=== PATIENT | female | born 1940 | race Caucasian/White ===

== ENCOUNTER 2019-01-01 09:53 | Outpatient (CLI) | payer MEDICARE ==
[~2019-01-01] VITALS: Ht 162.6 cm; Wt 70.8 kg
[~2019-01-01 09:53] MED LIST: METO-370 PO; TYLENOL # 3 PO
[2019-01-01 10:04] VITALS: BP 155/82
[2019-01-01] MEDS ORDERED: ASPI-586 PO (10:10)
== END 2019-01-01 10:25 | disposition home or self-care (01) ==
LOC: PREOP 09:53
PROVIDERS: ATTEND Podiatrist Foot & Ankle Surgery
DX: Z01.818 Encounter for other preprocedural examination (principal)
CPT/HCPCS: 87081

== ENCOUNTER 2019-01-12 06:04 | Day surgery (SDC) | payer MEDICARE ==
[~2019-01-12] VITALS: Ht 162.6 cm; Wt 70.8 kg
[~2019-01-12 06:04] MED LIST changes: +ASPI-586 PO
--- OUTSIDE RECORDS SUMMARY | 2019-01-12 06:08 | XMS REPORT | Continuity of Care Document ---
Author Organization Unknown Address Unknown Allergies Active Description Code Type Severity Reaction Onset Reported/Identified Relationship to Patient Clinical Status Yes No Known Allergies [id number] Drug Allergy Unknown N/A 11/09/2015 Medications There is no data. Problems Date Dx Coded Attending Type Code Diagnosis Diagnosed By 05/03/2012 Ot 272.4 05/03/2012 Ot 276.1 05/03/2012 Ot 276.8 05/03/2012 Ot 285.1 05/03/2012 Ot 427.89 05/03/2012 Ot 715.36 06/17/2012 Ot V43.65 06/17/2012 Ot V54.81 06/17/2012 Ot V57.1 07/19/2015 Ot 353.9 07/19/2015 Ot 473.8 07/19/2015 Ot 722.4 07/19/2015 Ot 723.4 07/19/2015 Ot 715.36 07/19/2015 Ot 791.9 07/19/2015 Ot V57.1 07/19/2015 Ot V57.21 07/19/2015 Ot V72.63 07/19/2015 Ot V74.8 07/19/2015 Ot V76.12 07/19/2015 Ot V76.12 07/19/2015 Ot 353.9 07/19/2015 Ot 473.8 07/19/2015 Ot 722.4 07/19/2015 Ot 723.4 07/19/2015 Ot 715.36 07/19/2015 Ot 791.9 07/19/2015 Ot V57.1 07/19/2015 Ot V57.21 07/19/2015 Ot V72.63 07/19/2015 Ot V74.8 07/19/2015 Ot V76.12 08/09/2015 MADDI SOTO, CRISS Duron Ot Z12.31 10/14/2015 KRUPA GERONIMO APRN Ot R07.9 10/14/2015 KRUPA GERONIMO APRN Ot R07.9 10/28/2015 Ot 353.9 10/28/2015 Ot 473.8 10/28/2015 Ot 722.4 10/28/2015 Ot 723.4 10/28/2015 Ot 715.36 10/28/2015 Ot 791.9 10/28/2015 Ot V57.1 10/28/2015 Ot V57.21 10/28/2015 Ot V72.63 10/28/2015 Ot V74.8 10/28/2015 Ot V76.12 10/28/2015 MADDI SOTO, CRISS Duron Ot Z12.31 10/28/2015 KRUPA GERONIMO APRN Ot R07.9 10/28/2015 ASHWINI SOTO FACC, ALI FACP CCDS Ot I10 10/28/2015 ASHWINI SOTO FACC, ALI FACP CCDS Ot R07.89 10/28/2015 ASHWINI SOTO FACC, ALI FACP CCDS Ot I10 10/28/2015 ASHWINI SOTO FACC, ALI FACP CCDS Ot R07.89 10/28/2015 MICHAEL SOTO, HEATHER Dash Ot N39.0 URINARY TRACT INFECTION, SITE NOT SPECIF 11/22/2015 ASHWINI SOTO FACC, ALI FACP CCDS Ot I10 11/22/2015 ASHWINI SOTO FACC, ALI FACP CCDS Ot R07.89 11/22/2015 ASHWINI SOTO FACC, ALI FACP CCDS Ot I10 11/22/2015 ASHWINI SOTO FACC, ALI FACP CCDS Ot R07.89 11/24/2015 ASHIWNI SOTO FACC, ALI FACP CCDS Ot I10 11/24/2015 ASHWINI SOTO FACC, ALI FACP CCDS Ot R07.89 11/24/2015 ASHWINI SOTO FACC, ALI FACP CCDS Ot I10 11/24/2015 ASHWINI SOTO FACC, ALI FACP CCDS Ot R07.89 12/02/2015 MOODY ROSS L GUIDE DOG TRAINER Ot I10 12/02/2015 CODY MOODY L GUIDE DOG TRAINER Ot R07.89 12/02/2015 BAIMA MOODY L GUIDE DOG TRAINER Ot R91.8 2015 BAIMA MOODY L GUIDE DOG TRAINER Ot I10 2015 CODY MOODY L GUIDE DOG TRAINER Ot R07.89 2015 CODY MOODY L GUIDE DOG TRAINER Ot R91.8 12/22/2015 MADDI SOTO, CRISS Duron Ot R07.81 12/22/2015 MADDI SOTO, CRISS Duron Ot R07.9 01/10/2016 CRISS LINDA MD Ot R07.81 01/10/2016 MADDI SOTO, CRISS Duron Ot R07.9 01/18/2016 CRISS LINDA MD Ot R07.81 01/18/2016 MADDI SOTO, CRISS Duron Ot R07.9 01/01/2019 MADDI SOTO, CRISS Druon Ot Z12.31 ENCNTR SCREEN MAMMOGRAM FOR MALIGNANT NE 01/01/2019 KRUPA GERONIMO APRN Ot R07.9 CHEST PAIN, UNSPECIFIED 01/01/2019 ASHWINI SOTO FACC, ALI FACP CCDS Ot I10 ESSENTIAL (PRIMARY) HYPERTENSION 01/01/2019 ASHWINI SOTO FACC, ALI FACP CCDS Ot R07.89 OTHER CHEST PAIN 01/01/2019 ASHWINI SOTO FACC, ALI FACP CCDS Ot I10 ESSENTIAL (PRIMARY) HYPERTENSION 01/01/2019 ASHWINI SOTO FACC, ALI FACP CCDS Ot R07.89 OTHER CHEST PAIN 01/01/2019 BAIMA MOODY L GUIDE DOG TRAINER Ot I10 ESSENTIAL (PRIMARY) HYPERTENSION 01/01/2019 BAIMA, MOODY L GUIDE DOG TRAINER Ot R07.89 OTHER CHEST PAIN 01/01/2019 BAIMA MOODY L GUIDE DOG TRAINER Ot R91.8 OTHER NONSPECIFIC ABNORMAL FINDING OF OSIEL 01/01/2019 CRISS LINDA MD Ot R07.81 PLEURODYNIA 01/01/2019 CRISS LINDA MD Ot R07.9 CHEST PAIN, UNSPECIFIED 01/01/2019 RAMSEY DPM, KIAN Q Ot Z01.818 ENCOUNTER FOR OTHER PREPROCEDURAL EXAMIN 01/02/2019 RAMSEY DPM, KIAN Q Ot Z01.818 ENCOUNTER FOR OTHER PREPROCEDURAL EXAMIN 01/02/2019 RAMSEY DPM, KIAN Q Ot Z01.818 ENCOUNTER FOR OTHER PREPROCEDURAL EXAMIN 01/12/2019 LUIZAMA MOODY L GUIDE DOG TRAINER Ot I10 ESSENTIAL (PRIMARY) HYPERTENSION 01/12/2019 BAIMAMOODY L GUIDE DOG TRAINER Ot R07.89 OTHER CHEST PAIN 01/12/2019 BAIMOODY MATHEWS L GUIDE DOG TRAINER Ot R91.8 OTHER NONSPECIFIC ABNORMAL FINDING OF OSIEL 01/12/2019 CRISS LINDA MD Ot R07.81 PLEURODYNIA 01/12/2019 CRISS LINDA MD Ot R07.9 CHEST PAIN, UNSPECIFIED Procedures There is no data. Results Test Result Range Methicillin resistant Staphylococcus aureus (MRSA) screening culture - 10:15 Methicillin resistant Staphylococcus aureus (MRSA) screening culture NEG NRG Encounters ACCT No. Visit Date/Time Discharge Status Pt. Type Provider Facility Loc./Unit Complaint [id number] 01/01/2019 09:53:00 01/01/2019 10:25:00 DIS Outpatient RAMSEY DPM, KIAN Q [facility] PREOP HALLUX VALGUS RIGHT [id number] 12/21/2015 15:20:00 12/21/2015 23:59:59 CLS Outpatient CRISS LINDA MD [facility] RAD CHEST PAIN,RIB PAIN [id number] 11/09/2015 10:52:00 11/09/2015 23:59:59 CLS Outpatient MOODY ROSS [facility] RAD CHEST DISCOMFORT [id number] 10/28/2015 07:30:00 10/28/2015 09:13:00 DIS Emergency MICHAEL SOTO, HEATHER Dash [facility] ER UTI SYMPTOMS [id number] 10/25/2015 08:05:00 10/25/2015 23:59:59 CLS Outpatient ASHWINI SOTO FACC, SUSANNAH KEY CCDS [facility] CARD CHEST DISCOMFORT,HTN [id number] 10/24/2015 10:43:00 10/24/2015 23:59:59 CLS Outpatient ASHWINI SOTO FACC ALI SHAHID CCDS [facility] CARD CHEST DISCOMFORT,HTN [id number] 10/12/2015 11:33:00 10/12/2015 23:59:59 CLS Outpatient KRUPA GERONIMO APRN [facility] CARD CHEST PAIN [id number] 07/19/2015 14:39:00 07/19/2015 23:59:59 CLS Outpatient CRISS LINDA MD [facility] RAD SCREENING [id number] 01/12/2019 06:04:00 ACT Outpatient RAMSEY DPM, KIAN Q [facility] SDC HALLUX VALGUS RIGHT [id number] 07/19/2015 14:39:00 Document Registration [id number] 07/19/2015 14:39:00 Document Registration [id number] 07/19/2015 14:38:00 Document Registration [id number] 01/23/2013 10:12:00 Document Registration [id number] 04/28/2012 05:50:00 Document Registration [id number] 08/16/2010 09:37:00 Document Registration
[2019-01-12 06:10] VITALS: BP 181/75
[2019-01-12] MEDS ORDERED: ceFAZolin INJECTION 1,000 MG in WATER (STERILE) FOR INJECTION 10 ML IV ONE (06:15)
[2019-01-12] MEDS: LACTATED RINGERS 1,000 ML IV PRN ×2 (06:25→09:28)
[2019-01-12] MEDS ORDERED: proPOfol 200 MG/20 ML (DIPRIVAN) VIAL IV ONE (06:46)
[2019-01-12] MEDS ORDERED: fentaNYL INJECTION 100 MCG/2 ML AMP ONE (06:46)
[2019-01-12] MEDS ORDERED: LIDOCAINE PF 2% 5 ML (XYLOCAINE) VIAL ONE (06:46)
[2019-01-12] MEDS ORDERED: ONDANSETRON 4 MG/2 ML (SDV) Z0FRAN ONE (06:46)
[2019-01-12] MEDS ORDERED: SEVOFLURANE (ULTANE) 15 ML INHAL SOLN ONE ×3 (06:46→09:04)
[2019-01-12] MEDS ORDERED: DEXAMETHASONE 10 MG/ML (DECADRON) 1 ML VIAL ONE ×2 (06:46→07:22)
[2019-01-12] MEDS ORDERED: CATHETER FLUSH 10 ML SYR IV PRN (07:00)
[2019-01-12] MEDS ORDERED: LIDOCAINE 1% INJ 20 ML 20 ML VIAL ONE (07:22)
[2019-01-12] MEDS ORDERED: BUPIVACAINE 0.5% 30 ML (SENSORCAINE) VIAL ONE (07:22)
--- NOTE | 2019-01-12 07:25 | Progress Note-Pre Operative ---
Pre-Operative Progress Note H&P Reviewed The H&P was reviewed, patient examined and no changes noted. Date Seen by Provider: Jan 12, 2019 Time Seen by Provider: 07:24 Date H&P Reviewed: Jan 12, 2019 Time H&P Reviewed: 07:24 Pre-Operative Diagnosis: Hallux Valgus, 2nd metatarsalgia, right foot KIAN MUSTAFA DPM Jan 12, 2019 07:25
[2019-01-12] MEDS ORDERED: LACTATED RINGERS 1,000 ML IV ONE (09:21)
[2019-01-12] MEDS ORDERED: LACTATED RINGERS 1,000 ML IV SCH (09:24)
--- NOTE | 2019-01-12 09:24 | Progress Note-Post Operative ---
Post-Operative Progess Note Surgeon (s)/Systems Eng (s) Surgeon KIAN MUSTAFA DPM Systems Eng: none Pre-Operative Diagnosis Hallux Valgus, 2nd metatarsalgia, right foot Post-Operative Diagnosis Same Procedure & Operative Findings Date of Procedure 01/12/19 Procedure Performed/Findings Arturo-Zaid Bunionectomy, 2nd Metatarsal osteotomy, right Anesthesia Type General Estimated Blood Loss Estimated blood loss (mL): Minimal Specimens/Packing Specimens Removed None KIAN MUSTAFA DPM Jan 12, 2019 09:24
[2019-01-12] MEDS ORDERED: CEPH500C PO (09:28)
[2019-01-12] MEDS ORDERED: ACHD5005 PO (09:28)
[2019-01-12] MEDS ORDERED: HYDROcodone/APAP 5 MG/325 MG (LORTAB) TAB PO PRN (09:30)
[2019-01-12] MEDS ORDERED: fentaNYL INJECTION 100 MCG/2 ML AMP IVP ONE (09:30)
[2019-01-12 10:05] VITALS: BP 126/78
[2019-01-12 10:10] VITALS: BP 126/78
--- NOTE | 2019-01-12 10:18 | Diagnostic Imaging Report ---
Right foot at 9:36 Indication: Postop AP and lateral views were obtained. There are no prior studies available for comparison. There are postoperative changes involving the first ray. There has been osteotomy of the head of the first metatarsal and the base of the proximal phalanx. There is also wire securing the osteotomy site along the medial aspect of the proximal phalanx. Orthopedic fixation wire is also seen extending through the head of the first metacarpal. In addition there is an orthopedic fixation screw obliquely traversing the head of the second metatarsal. There is some gas in the soft tissues about the first ray. There is no other fracture or acute bony abnormality noted. Impression: There are postoperative changes of the first and second rays. There is no acute abnormality identified. Dictated by: Dictated on workstation # [id number]
[2019-01-12 10:35] VITALS: BP 158/71
--- NOTE | 2019-01-12 10:57 | Anesthesia-General Post-Op ---
General Patient Condition Mental Status/LOC: Same as Preop Cardiovascular: Satisfactory Nausea/Vomiting: Absent Respiratory: Satisfactory Pain: Controlled Complications: Absent Post Op Complications Complications None Follow Up Care/Instructions Patient Instructions None needed. Anesthesia/Patient Condition Patient Condition Patient is doing well, no complaints, stable vital signs, no apparent adverse anesthesia problems. No complications reported per nursing. D/C home per [facility] [place] Criteria: Yes ISA WILSON CRNA Jan 12, 2019 10:56
[2019-01-12 11:05] VITALS: BP 176/86
--- NOTE | 2019-01-12 11:08 | Physical Therapy Ortho Eval ---
PT Orthopedic Evaluation Type of Surgery hallux valgus right Prior Level of Function Current Living Status: Spouse Locomotion (Upon Admit): Independent Established Durable Medical Eq: Front Wheeled Walker Subjective Subjective Agrees to PT. Reports her will be at home to help her. Entry Into Home: Stairs With Railing (4) Motor Control Motor Control: Motor Control WNL ROM ROM: WFL Strength Strength: WFL Transfer Transfers (B, C, W/C) (FIM): 6 Gait Gait Assistive Device: FWW Right Lower Extremity: Right Weight Bearing Status RLE: Non Weight Bearing (heel touch only) Left Lower Extremity: Left Weight Bearing Status LLE: Full Weight Bearing Gait (FIM): 5 (6 at discharge) Summary/Comments Pt able to walk with heel touch WB only with FWW safely. Up/down a step x 3 with skilled cues and instruction on sequencing and safety with education on WB maintenance. Pt plans to use her handrail to go up and down sideways. Demonstrated correct and safe performance. Treatment Rendered Treatment: Gait Train, Step Train Assessment/Goals Goal Time Frame: 1 Visit Plan Treatment Plan: Discharge, Education PT/Family Agrees to Plan: Yes Time Time In: 1040 Time Out: 1100 Total Billed Treatment Time: 20 Billed Treatment Time visit EVL 20 KATHE AGUIRRE PT Jan 12, 2019 11:08
--- NOTE | 2019-01-12 15:18 | OPERATIVE REPORT ---
DATE OF SERVICE: 01/12/2019 SURGEON: Marylu Alvarez DPM. PREOPERATIVE DIAGNOSES: 1. Hallux abducto valgus metatarsal primus varus, right foot. 2. Hypertrophic second metatarsal, right foot. POSTOPERATIVE DIAGNOSES: 1. Hallux abducto valgus metatarsal primus varus, right foot. 2. Hypertrophic second metatarsal, right foot. PROCEDURE: 1. Modified Arturo-Zaid bunionectomy, right foot. 2. Second metatarsal osteotomy, right foot. WOUND CLASS: Clean. ANESTHESIA: General. HEMOSTASIS: Pneumatic thigh tourniquet 300 mmHg. INDICATION: This 78-year-old female presents complaining of a painful right foot. Conservative therapy has met with unsatisfactory results and the patient is agreeable to surgical intervention after risks and complications were discussed at length. No guarantees were extended to the patient and she is willing to proceed. DESCRIPTION OF PROCEDURE: The patient was brought back to the operating table, placed in secure supine position. Appropriate time out was performed. Pneumatic thigh tourniquet was placed on the right lower extremity over several layers of padding. General anesthetic was induced. The right foot was then prepped and draped in normal sterile manner. The right foot was then elevated and allowed to exsanguinate after which the tourniquet was inflated to 300 mmHg. Attention was then directed to the dorsal aspect of the right first metatarsophalangeal joint where a 6 cm longitudinal linear incision was created. The incision was deepened in the same plane with great care to identify and retract all vital neurovascular structures. All the necessary blood vessels were cauterized as encountered. The incision was deepened down to the capsule where a longitudinal capsulotomy was performed. The capsule tissue was reflected medially and laterally exposing the hypertrophic medial eminence of the first metatarsal head, which was resected utilizing a power sagittal saw. Blunt dissection was carried out into the first intermetatarsal space where a lateral release was performed. The conjoint tendon of the adductor hallucis was released as well as the fibular sesamoidal ligament and a lateral capsulorrhaphy was performed. The hallux was then forcibly adducted. Next, a Chevron-type osteotomy was performed to the distal right first metatarsal allowing the capital fragment to translocate laterally and fixated in its corrected position utilizing a 0.062 threaded K-wire driven from dorsal proximal to plantar distal across the osteotomy with great care to avoid penetrating the articular cartilage. The K-wire was cut flush with the dorsal aspect of the first metatarsal. The head of the first metatarsal was further contoured and smoothed with a power sagittal saw and power bur. Attention was then directed to the diaphysis of the right hallux proximal phalanx where an Zaid type osteotomy was performed. Subperiosteal dissection was carried out after which a wedge of bone was resected utilizing a power sagittal saw. The lateral cortices was held intact and the wedge of bone was removed. The gap was closed, noting a good reduction of the angulation of the right hallux. Two facilities flight check pilot holes were created after which a 28-gauge monofilm wire were passed through these facilities flight check pilot holes securing the osteotomy in a closed position after it was flushed with copious amounts of normal saline. Excellent bony apposition and fixation was appreciated at this time. Good alignment of the first ray was appreciated as well especially with plantar pressure applied simulating weightbearing. The closure was performed in layers. Deep closure was performed with 3-0 Vicryl, superficial with 4-0 Vicryl, skin closed with 4-0 Prolene in a horizontal mattress type stitch. Attention was then directed to the dorsal aspect of the right second metatarsophalangeal joint where a 3 cm longitudinal linear incision was created. The incision was deepened in the same plane with great care to identify and retract vital neurovascular structures. All the necessary blood vessels were cauterized as encountered. The incision was deepened down to the capsule and extensor tendon where a longitudinal capsulotomy was performed just medial to the extensor tendons overlying the second metatarsophalangeal joint. Next, a power sagittal saw was utilized to create an oblique second metatarsal osteotomy starting at the articular cartilage at the distal lateral aspect extending proximally. The through and through osteotomy allowing the capital fragment to translocate proximally and medially and was fixated in its corrected position utilizing a 2.0 snap-off screw of 14 mm of length. Excellent bony apposition and fixation was appreciated at this time. The wound was flushed with copious amounts of normal saline throughout the procedure. Closure was then performed in layers. Deep closure and superficial closure was performed with 4-0 Vicryl. Skin closure was performed with 4-0 Prolene in a horizontal mattress type stitch. Postoperative injection consisted of 10 mL of 0.5% Marcaine, 10 mL of 0.5% Marcaine was utilized preoperatively as well. In addition to the Marcaine, 10 mg of dexamethasone was injected in the first intermetatarsal space of the right foot. Postoperative dressing consisted of Betadine soaked Adaptic, sterile 4 x 4, sterile Kerlix, all secured with a Coban wrap. The patient tolerated the anesthesia and procedure well and was transported from the operating room to the recovery area with vital signs stable and vascular status intact to all digits of the right foot. Postoperative instructions were given to the patient and she is to be nonweightbearing on the right foot. Follow up in my office in 10 days' period of time or sooner if necessary. She was given a prescription for Keflex and Vicodin. Job ID: [id number] DocumentID: [id number] Dictated Date: 01/12/2019 09:36:04 Unemployment Insurance Hearing Officer Date: 01/12/2019 15:17:58 Dictated By: DARRYN BRIZUELA
== END 2019-01-12 11:25 | disposition home or self-care (01) ==
LOC: SDC 06:04
PROVIDERS: ATTEND Podiatrist Foot & Ankle Surgery
DX: M20.11 Hallux valgus (acquired), right foot (principal); M89.371 Hypertrophy of bone, right ankle and foot; M77.41 Metatarsalgia, right foot; E78.2 Mixed hyperlipidemia; I10 Essential (primary) hypertension; Z79.82 Long term (current) use of aspirin; Z79.899 Other long term (current) drug therapy
CPT/HCPCS: 73620

== ENCOUNTER → 2019-02-21 | Outpatient (CLI) | payer MEDICARE ==
[~2019-02-21] MED LIST changes: +ACHD5005 PO; +CEPH500C PO
== END ==
LOC: LAB 12:28
PROVIDERS: ATTEND Internal Medicine
DX: D64.9 Anemia, unspecified (principal)
CPT/HCPCS: 82274

== ENCOUNTER → 2019-05-19 | Outpatient (CLI) | payer MEDICARE ==
[~2019-05-19] MED LIST changes: +HOLD METFORMIN - RECEIVED CONTRAST 20 ML VIAL IV SCH; +IOHEXOL 350 MG/ML 100 ML (OMNIPAQUE 350) VIAL IV ONE; +NS 100 ML (IVPB) BAG IV ONE
--- NOTE | 2019-05-19 13:29 | Diagnostic Imaging Report ---
PROCEDURE: CT abdomen and pelvis with and without contrast. TECHNIQUE: Precontrast acquisitions were acquired through the abdomen and pelvis. Multiple contiguous axial images were obtained through the abdomen and pelvis after the administration of intravenous contrast. Auto Exposure Controls were utilized during the CT exam to meet ALARA standards for radiation dose reduction. (It is noted that there was inadvertent imaging through the chest). INDICATION: Diverticulitis. Abdominal pain. CORRELATION STUDY: 07/27/2009. FINDINGS: Imaging included the chest. The heart size is enlarged with trace pericardial effusion. There are no pathologically enlarged mediastinal and/or hilar lymph nodes demonstrated. Thoracic aortic contour appearing unremarkable. There is noted gas within the left innominate vein and proximal aspect of the superior vena cava. Liver, pancreas, and adrenal glands are unremarkable. Few calcified granulomas in the spleen. Gallbladder is absent. Common bile duct is dilated up to just under 1 cm maximum dimension. A few probable cortical cysts of the kidneys. No hydronephrosis or obstruction. Moderate aortoiliac wall calcification. Slight ectasia without evidence for aneurysm. Maximum dimension of the abdominal aorta at 2.3 cm. Major branches are patent proximally. Gastrointestinal tract demonstrated some mild severity of fecal retention. There is a moderate severity of colonic diverticulosis, particular descending and sigmoid colon. No definitive inflamed diverticulum. However, there is very slight haziness of the pericolonic fat in the left lower quadrant. Possibility of low-grade diverticulitis would be difficult to exclude or could be chronic changes. A few mildly prominent fluid-filled loops of small bowel in the right lower quadrant without evidence for obstruction. Urinary bladder appearing unremarkable. Uterus appearing absent. Lung vidales do demonstrate emphysematous changes. No definitive infiltrate. Mild bibasilar atelectasis and trace dependent pleural effusions. Two 4 mm nodules in the anterior right middle lobe. IMPRESSION: 1. Prominent distal colonic diverticulosis. While definitive inflamed diverticulum is not demonstrated, there are slight pericolonic inflammatory changes to the left lower quadrant of which lower-grade diverticulitis or perhaps chronic changes not excluded. No abscess formation. 2. Small amount of air noted in the left brachiocephalic trunk and superior vena cava. (A telephone call has been made to the medical technologist chief. Patient reported as asymptomatic). Dictated by: Dictated on workstation # [id number]
== END ==
LOC: RAD 05-18 15:52
PROVIDERS: ATTEND Nurse Practitioner
DX: K57.30 Diverticulosis of large intestine without perforation or abscess without bleeding (principal); K57.32 Diverticulitis of large intestine without perforation or abscess without bleeding
CPT/HCPCS: 74178

== ENCOUNTER 2022-02-18 19:19 | Emergency (ER) | payer MEDICARE ==
[~2022-02-18] VITALS: Ht 162.5 cm; Wt 65.7 kg
[~2022-02-18 19:19] MED LIST changes: -HOLD METFORMIN - RECEIVED CONTRAST 20 ML VIAL IV SCH; -IOHEXOL 350 MG/ML 100 ML (OMNIPAQUE 350) VIAL IV ONE; -METO-370 PO; +METO50TA7 PO; -NS 100 ML (IVPB) BAG IV ONE
[2022-02-18] MEDS ORDERED: LACTATED RINGERS 1,000 ML IV ONE ×2 (19:45→21:30)
[2022-02-18] MEDS ORDERED: ONDANSETRON 4 MG/2 ML (SDV) Z0FRAN IVP ONE (19:45)
[2022-02-18 19:47] LABS: BASOPHILS % (AUTO) 0 % (0-10); EOSINOPHILS # (AUTO) 0.1 10^3/uL (0.0-0.3); EOSINOPHILS % (AUTO) 1 % (0-10); HEMATOCRIT 40 % (35-52); HEMOGLOBIN 13.1 g/dL (11.5-16.0); LYMPHOCYTES # (AUTO) 0.3 10^3/uL (1.0-4.0); LYMPHOCYTES % (AUTO) 4 % (12-44); MEAN CORPUSCULAR HEMOGLOBIN 30 pg (25-34); MEAN CORPUSCULAR HGB CONC 33 g/dL (32-36); MEAN CORPUSCULAR VOLUME 90 fL (80-99); MEAN PLATELET VOLUME 11.3 fL (9.0-12.2); MONOCYTES # (AUTO) 0.4 10^3/uL (0.0-1.0); MONOCYTES % (AUTO) 4 % (0-12); NEUTROPHILS # (AUTO) 8.3 10^3/uL (1.8-7.8); NEUTROPHILS % (AUTO) 91 % (42-75); PLATELET COUNT 157 10^3/uL (130-400); WHITE BLOOD COUNT 9.2 10^3/uL (4.3-11.0)
[2022-02-18 19:53] LABS: ALBUMIN 4.1 GM/DL (3.2-4.5); CHLORIDE 107 MMOL/L (98-107); POTASSIUM 4.2 MMOL/L (3.6-5.0); SODIUM 139 MMOL/L (135-145)
[2022-02-18 19:54] LABS: AMYLASE 66 U/L (25-125); CALCIUM 9.3 MG/DL (8.5-10.1)
[2022-02-18 19:55] LABS: GLUCOSE 124 MG/DL (70-105)
[2022-02-18 19:57] LABS: CARBON DIOXIDE 19 MMOL/L (21-32)
[2022-02-18 19:59] LABS: ALKALINE PHOSPHATASE 51 U/L (40-136); CREATININE SERUM 1.04 MG/DL (0.60-1.30); GFR ESTIMATED 53
[2022-02-18 20:00] LABS: BUN/CREATININE RATIO 20
[2022-02-18] MEDS ORDERED: HYOSCYAMINE 0.125 MG (LEVSIN) TAB SL ONE (20:00)
[2022-02-18 20:02] LABS: ALANINE AMINOTRANSFERASE 13 U/L (0-55); MAGNESIUM 1.6 MG/DL (1.6-2.4)
[2022-02-18 20:03] LABS: CREATINE KINASE 50 U/L (29-168); LIPASE 12 U/L (8-78)
[2022-02-18 20:07] LABS: BILIRUBIN,URINE NEGATIVE (NEGATIVE); CLARITY,URINE CLEAR; COLOR,URINE YELLOW; GLUCOSE, URINE (UA) NEGATIVE (NEGATIVE); KETONES,URINE NEGATIVE (NEGATIVE); LEUKOCYTE ESTERASE ,URINE NEGATIVE (NEGATIVE); NITRITE,URINE NEGATIVE (NEGATIVE); PROTEIN,URINE NEGATIVE (NEGATIVE)
[2022-02-18 20:13] LABS: BAND NEUTROPHILS 3 %; LYMPHOCYTES % (MANUAL) 2 %; MONOCYTES % (MANUAL) 5 %; NEUTROPHILS % (MANUAL) 90 %; RBC MORPH NORMAL; TOXIC GRANULATION/VACUOLAZATIO 1+
[2022-02-18 20:17] LABS: BACTERIA,URINE TRACE /HPF; WBC,URINE RARE /HPF
--- NOTE | 2022-02-18 20:26 | ED GI ---
General Chief Complaint: Abdominal/GI Problems Stated Complaint: DIARRHEA Nursing Triage Note: PATIENT STATES THAT SHE BEGAN TO HAVE DIARRHEA AT 1000 TODAY AND HAS HAD APPROX. 12 EPISODES SINCE THEN. SHE HAS TAKEN IMODIUM THAT HAS NOT HELPED. SHE ALSO C/O CRAMPING BUT DENIES VOMITING. Source of Information: Patient, Spouse History of Present Illness Date Seen by Provider: February 18, 2022 Time Seen by Provider: 19:40 Initial Comments PT ARRIVES VIA POV FROM HOME WITH PT HAS HAD NAUSEA, ABDOMINAL CRAMPING AND PAIN AND DIARRHEA SINCE 10 AM TODAY HAS HAD DIARRHEA 12 TIMES TODAY, NO BLACK/BLOODY/TARRY STOOLS NO VOMITING HAS NOT EATEN TODAY, AND ONLY HAD 2 SIPS OF SODA THIS AM. NOTHING ELSE TO DRINK TODAY NO FEVER STATES SHE IS VOIDING NORMALLY TOOK A TOTAL OF 4 IMMODIUM SINCE THIS MORNING, AND HAS NOT HAD A BM FOR A COUPLE OF HOURS. NO KNOWN SICK CONTACT DID GO TO A BBQ YESTERDAY, AND AROUND 1700 YESTERDAY SHE HAD A HAMBURGER, SOME MUSHROOMS AND ONIONS THAT WERE COOKED IN ALUMINUM FOIL OVER THE GRILL. SHE ALSO HAD A PIECE OF CAKE AT THAT TIME HAD A BROWNIE AROUND 2100 LAST PM ATE SAME AND IS NOT ILL. NO HISTORY OF SIMILAR NO GI PROBLEMS , BUT HAS HAD CHOLECYSTECTOMY AND HYSTERECTOMY ONLY MEDICAL PROBLEM IS HTN PT HAS HAD COVID-19 VACCINE X 4 PCP: DR. LINDA Allergies and Home Medications Allergies Coded Allergies: No Known Allergies (Unverified Allergy, Unknown, 11/09/15) Patient Home Medication List Home Medication List Reviewed: Yes Aspirin (Aspir 81) 81 Mg Tablet., 81 MG PO MoWeFr, (Reported) Entered as Reported by: MAGDA KRUEGER on 01/01/19 1010 Cephalexin (Cephalexin) 500 Mg Capsule, 1 CAP PO TID Prescribed by: KIAN MUSTAFA on 01/12/19927 Hydrocodone Bit/Acetaminophen (Lortab 5 Mg Tablet) 1 Tab Tab, 1-2 TAB PO Q6H PRN for PAIN-MODERATE Prescribed by: KIAN MUSTAFA on 01/12/19927 Hyoscyamine Sulfate (Levsin-Sl) 0.125 Mg Tab.subl, 0.25 MG SL Q4H Prescribed by: ALEJANDRO DU on 02/18/222132 L. Acidophilus/Pectin, [place] (Acidophilus Capsule) 7.5 Mg (30 Million Cell)-100 Mg Capsule, 2 EACH PO QID Prescribed by: ALEJANDRO DU on 02/18/222132 Metoprolol Succinate (Metoprolol Succinate) 50 Mg Tab.er.24h, 50 MG PO HS, (Reported) Entered as Reported by: BRENT MICHEL on 10/28/15 0751 Ondansetron (Ondansetron Odt) 4 Mg Tab.rapdis, 4 MG PO Q4H Prescribed by: ALEJANDRO DU on 02/18/222132 Review of Systems Review of Systems Constitutional: No fever; malaise, weakness EENTM: No Symptoms Reported Respiratory: No Symptoms Reported Cardiovascular: No Symptoms Reported Gastrointestinal: See HPI, Abdominal Pain, Diarrhea, Nausea, Poor Appetite, Poor Fluid Intake; Denies Vomiting Genitourinary: No Symptoms Reported Musculoskeletal: no symptoms reported Skin: no symptoms reported Psychiatric/Neurological: Anxiety (HYPERVENTILATING ON ARRIVAL--PT CALMED SHORTLY AFTER ARRIVAL) Endocrine: No Symptoms Reported Hematologic/Lymphatic: No Symptoms Reported Past Twohptk-Ggmjtr-Xccksp Hx Patient Social History Tobacco Use?: No Smoking Status: Never a Smoker Use of E-Cig and/or Vaping Mik: Never a User Substance use?: No Alcohol Use?: No Immunizations Up To Date Tetanus Booster (TDap): Unknown PED Vaccines UTD: No Seasonal Allergies Seasonal Allergies: No Past Medical History Surgeries: Yes (R TKR;R FOOT BUNIONECTOMY;BILAT CATARACTS) Eye Surgery, Gallbladder, Hysterectomy, Orthopedic Respiratory: No Cardiac: Yes Hypertension Neurological: No Reproductive Disorders: No [employer] History: Hysterectomy, Menopausal Genitourinary: Yes Bladder Infection Gastrointestinal: Yes (S/P CHOLECYSTECTOMY) Gall Bladder Disease Musculoskeletal: Yes (RIGHT TKR, R FOOT BUNIONECOMY) Arthritis Endocrine: No HEENT: Yes (cataracts removed) Cataract Hearing Impairment: Hard of Hearing Cancer: No Psychosocial: No Integumentary: No Blood Disorders: No Adverse Reaction/Blood Tranf: No Physical Exam Vital Signs Vital Signs - First Documented 02/18/22 19:35 Temp 36.7 Pulse 96 Resp 20 B/P (MAP) 136/75 (95) Pulse Ox 96 O2 Delivery Room Air Capillary Refill : Less Than 3 Seconds Height/Weight/BMI Height: 5'4.00" Weight: 156lbs. 0.0oz. [id number]; 24.00 BMI Method: General Appearance: WD/WN, no apparent distress HEENT: PERRL/EOMI; No scleral icterus (R), No scleral icterus (L) Neck: normal inspection Respiratory: normal breath sounds, no respiratory distress, no accessory muscle use Cardiovascular: regular rate, rhythm, no murmur Gastrointestinal: soft, no organomegaly, no pulsatile mass, abnormal bowel sounds (HYPERACTIVE); No distended, No guarding, No rebound; tenderness (DIFFUSE TENDERNESS, BUT IS MOST TENDER IN LLQ AND SUPRAPUBIC AREA); No hernia, No mass Extremities: normal inspection Back: normal inspection, no CVA tenderness Neurologic/Psychiatric: manager program II-XII nml as tested, no motor/sensory deficits, alert, oriented x 3 Skin: normal color, warm/dry; No rash Progress/Results/Core Measures Results/Orders Lab Results Laboratory Tests Test 02/18/22 19:35 02/18/22 20:01 Range/Units White Blood Count 9.2 4.3-11.0 10^3/uL Red Blood Count 4.40 3.80-5.11 10^6/uL Hemoglobin 13.1 11.5-16.0 g/dL Hematocrit 40 35-52 % Mean Corpuscular Volume 90 80-99 fL Mean Corpuscular Hemoglobin 30 25-34 pg Mean Corpuscular Hemoglobin Concent 33 32-36 g/dL Red Cell Distribution Width 13.6 10.0-14.5 % Platelet Count 157 130-400 10^3/uL Mean Platelet Volume 11.3 9.0-12.2 fL Immature Granulocyte % (Auto) 0 % Neutrophils (%) (Auto) 91 H 42-75 % Lymphocytes (%) (Auto) 4 L 12-44 % Monocytes (%) (Auto) 4 0-12 % Eosinophils (%) (Auto) 1 0-10 % Basophils (%) (Auto) 0 0-10 % Neutrophils # (Auto) 8.3 H 1.8-7.8 10^3/uL Lymphocytes # (Auto) 0.3 L 1.0-4.0 10^3/uL Monocytes # (Auto) 0.4 0.0-1.0 10^3/uL Eosinophils # (Auto) 0.1 0.0-0.3 10^3/uL Basophils # (Auto) 0.0 0.0-0.1 10^3/uL Immature Granulocyte # (Auto) 0.0 0.0-0.1 10^3/uL Neutrophils % (Manual) 90 % Lymphocytes % (Manual) 2 % Monocytes % (Manual) 5 % Band Neutrophils 3 % Toxic Granulation 1+ Blood Morphology Comment NORMAL Prothrombin Time 12.4 12.2-14.7 SEC INR Comment 0.9 0.8-1.4 Activated Partial Thromboplast Time 26 24-35 SEC Sodium Level 139 135-145 MMOL/L Potassium Level 4.2 3.6-5.0 MMOL/L Chloride Level 107 98-107 MMOL/L Carbon Dioxide Level 19 L 21-32 MMOL/L Anion Gap 13 5-14 MMOL/L Blood Urea Nitrogen 21 H 7-18 MG/DL Creatinine 1.04 0.60-1.30 MG/DL Estimat Glomerular Filtration Rate 53 BUN/Creatinine Ratio 20 Glucose Level 124 H 70-105 MG/DL Calcium Level 9.3 8.5-10.1 MG/DL Corrected Calcium 9.2 8.5-10.1 MG/DL Magnesium Level 1.6 1.6-2.4 MG/DL Total Bilirubin 2.0 H 0.1-1.0 MG/DL Aspartate Amino Transf (AST/SGOT) 22 5-34 U/L Alanine Aminotransferase (ALT/SGPT) 13 0-55 U/L Alkaline Phosphatase 51 40-136 U/L Total Creatine Kinase 50 29-168 U/L Creatine Kinase MB 1.0 <6.6 NG/ML Troponin I < 0.028 <0.028 NG/ML Total Protein 7.0 6.4-8.2 GM/DL Albumin 4.1 3.2-4.5 GM/DL Amylase Level 66 25-125 U/L Lipase 12 8-78 U/L Urine Color YELLOW Urine Clarity CLEAR Urine pH 6.0 5-9 Urine Specific [place] 1.020 1.016-1.022 Urine Protein NEGATIVE NEGATIVE Urine Glucose (UA) NEGATIVE NEGATIVE Urine Ketones NEGATIVE NEGATIVE Urine Nitrite NEGATIVE NEGATIVE Urine Bilirubin NEGATIVE NEGATIVE Urine Urobilinogen 0.2 < = 1.0 MG/DL Urine Leukocyte Esterase NEGATIVE NEGATIVE Urine RBC (Auto) NEGATIVE NEGATIVE Urine RBC NONE /HPF Urine WBC RARE /HPF Urine Squamous Epithelial Cells 2-5 /HPF Urine Crystals NONE /LPF Urine Bacteria TRACE /HPF Urine Casts NONE /LPF Urine Mucus SMALL H /LPF Urine Culture Indicated NO My Orders Orders - ALEJANDRO DU DO Ed Iv/Invasive Line Start (02/18/22 19:40) Ekg Tracing (02/18/22 19:40) Monitor-Rhythm Ecg Trace Only (02/18/22 19:40) Amylase (02/18/22 19:40) Cbc With Automated Diff (02/18/22:40) Comprehensive Metabolic Panel (02/18/22 19:40) Creatine Kinase (02/18/22 19:40) Creatine Kinase Mb (02/18/22 19:40) Lipase (02/18/22:40) Magnesium (02/18/22:40) Protime With Inr (02/18/22:40) Partial Thromboplastin Time (02/18/22 19:40) Ua Culture If Indicated (02/18/22 19:40) Troponin I Maria Elena (02/18/22 19:40) Ondansetron Injection (Zofran Injectio (02/18/22 19:45) Ed Iv/Invasive Line Start (02/18/22 19:40) Lactated Ringers (Lr 1000 Ml Iv Solution (02/18/22 19:45) Covid 19 Inhouse Test (02/18/22:40) Influenza A And B By Pcr (02/18/22 19:40) Isolation Central Supply Req (02/18/22 19:40) Manual Differential (02/18/22 19:35) Straight Cath For Spec.-Adult (02/18/22 19:50) Hyoscyamine Sl Tablet (Levsin Sl Tablet) (02/18/22 20:00) Ct Abdomen/Pelvis W (02/18/22 20:18) Chest 1 View, Ap/Pa Only (02/18/22 20:20) Iohexol Injection (Omnipaque 350 Mg/Ml 1 (02/18/22 20:30) Received Contrast (Hold Metformin- Contr (02/18/22 20:30) Sodium Chloride Flush (Catheter Flush Sy (02/18/22 20:30) Ns (Ivpb) (Sodium Chloride 0.9% Ivpb Bag (02/18/22 20:30) Ed Iv/Invasive Line Start (02/18/22 21:28) Lactated Ringers (Lr 1000 Ml Iv Solution (02/18/22 21:30) Rx-Hyoscyamine Tab (Rx-Levsin Sl) (02/18/22 21:28) Rx-Ondansetron Po (Rx-Zofran Po) (02/18/22 21:28) Medications Given in ED Current Medications Medications Dose Ordered Sig/Swathi Route Start Time Stop Time Status Last Admin Dose Admin Hyoscyamine Sulfate 0.25 mg ONCE ONCE SL 02/18/22 20:00 02/18/22 20:01 DC 02/18/22 19:58 0.25 MG Iohexol 100 ml ONCE ONCE IV 02/18/22 20:30 02/18/22 21:00 DC 02/18/22 20:48 83 ML Lactated Ringer's 1,000 ml @ 0 mls/hr Q0M ONCE IV 02/18/22 19:45 02/18/22 19:46 DC 02/18/22 19:59 999 MLS/HR Lactated Ringer's 1,000 ml @ 0 mls/hr Q0M ONCE IV 02/18/22 21:30 02/18/22 21:31 DC 02/18/22 21:39 999 MLS/HR Ondansetron HCl 4 mg ONCE ONCE IVP 02/18/22 19:45 02/18/22 19:46 DC 02/18/22 19:58 4 MG Sodium Chloride 10 ml NEEDED PRN IV 02/18/22 20:30 02/18/22 22:16 DC 02/18/22 20:48 10 ML Sodium Chloride 100 ml ONCE ONCE IV 02/18/22 20:30 02/18/22 21:00 DC 02/18/22 20:48 80 ML Vital Signs/I&O 02/18/22 02/18/22 19:35 22:10 Temp 36.7 36.6 Pulse 96 93 Resp 20 14 B/P (MAP) 136/75 (95) 142/69 Pulse Ox 96 99 O2 Delivery Room Air Room Air 02/19/22 00:00 Intake Total 2000 ml Balance 2000 ml Blood Pressure Mean: 95 Progress Progress Note : Progress Note GIVEN IV FLUIDS AND LEVSIN WITH IMPROVEMENT IN SYMPTOMS CRAMPING/PAIN RESOLVED NO BM DURING ER STAY PT TOLERATING LIQUIDS Initial ECG Impression Date: February 18, 2022 Initial ECG Impression Time: 19:52 Initial ECG Rate: 83 Initial ECG Rhythm: Normal Sinus Diagnostic Imaging Comments PER RADIOLOGIST REPORTS AT 2123 CXR-- FINDINGS: The heart size, mediastinal configuration and pulmonary vascularity are within normal limits. No infiltrate. Perhaps minimal scarring or atelectasis right perihilar region and left lung base. IMPRESSION: 1. Negative for acute abnormality of the chest. CT ABDOMEN/PELVIS-- FINDINGS: LOWER THORAX: Minimal dependent atelectasis. Heart size is mildly enlarged with small pericardial effusion. Small hiatal hernia. LIVER: Unremarkable. GALLBLADDER: Gallbladder absent. There is mild prominence of the extrahepatic and central intrahepatic biliary tree likely post costectomy state. SPLEEN: Several calcified granulomas. PANCREAS: Atrophic, otherwise unremarkable. ADRENAL GLANDS: Unremarkable. KIDNEYS: Probable small cortical cyst, no obstruction. ABDOMINAL AORTA: Moderate aortoiliac wall calcification. GASTROINTESTINAL TRACT: Stomach relatively collapsed with resultant gastric wall thickening. There are a few fluid-filled loops of small bowel with some areas of small bowel wall thickening. Most pronounced in the pelvis. No transition or evidence for underlying obstruction. There is some fluid within the colon. Colonic diverticulosis without evidence for acute diverticulitis. The appendix is not localized. There is a small amount of pelvic fluid. URINARY BLADDER: Relatively decompressed. REPRODUCTIVE: Hysterectomy. OSSEOUS STRUCTURES: No acute abnormality. OTHER: None. IMPRESSION: 1. A few prominent fluid and gas-filled loops of small bowel with small bowel wall thickening. No transition or evidence for obstruction, could be reflective of nonspecific enteritis. There is presence of a small volume pelvic ascites which is considered abnormal given the patient's age. This does increase concern for potential underlying infectious or inflammatory process. Close clinical and potentially short-term follow-up imaging correlation, as clinically warranted. 2. Diverticulosis without evidence for acute diverticulitis. The appendix is not localized. 3. Cardiac enlargement. Small pericardial effusion. Reviewed: Reviewed by Me Departure Impression Primary Impression: Gastroenteritis Disposition: 01 HOME, SELF-CARE Condition: Improved Departure-Patient Inst. Decision time for Depature: 21:30 Referrals: CRISS LINDA MD (PCP/Family) Primary Care Physician Patient Instructions: [id number] Add. Discharge Instructions: CLEAR LIQUIDS--WATER, BROTH, JELLO, GATORADE BRATS DIET--BANANAS, RICE, APPLESAUCE, TOAST, SALTINES FOLLOW UP WITH DR. LINDA IN 2-3 DAYS IF NO BETTER, RETURN TO ER IF WORSE All discharge instructions reviewed with patient and/or family. Voiced understanding. Scripts L. Acidophilus/Pectin, [place] (Acidophilus Capsule) 7.5 Mg (30 Million Cell)-100 Mg Capsule 2 EACH PO QID, #40 CAP Prov: ALEJANDRO DU DO 02/18/22 Hyoscyamine Sulfate (Levsin-Sl) 0.125 Mg Tab.subl 0.25 MG SL Q4H, #15 TAB Prov: ALEJANDRO DU DO 02/18/22 Ondansetron (Ondansetron Odt) 4 Mg Tab.rapdis 4 MG PO Q4H for Nausea/Vomiting, #10 TAB Prov: ALEJANDRO DU DO 02/18/22 ALEJANDRO DU DO February 18, 2022 20:26
[2022-02-18 20:30] LABS: INR 0.9 (0.8-1.4); PROTHROMBIN TIME PATIENT 12.4 SEC (12.2-14.7)
[2022-02-18] MEDS ORDERED: CATHETER FLUSH 10 ML SYR IV PRN (20:30)
[2022-02-18] MEDS ORDERED: IOHEXOL 350 MG/ML 100 ML (OMNIPAQUE 350) VIAL IV ONE (20:30)
[2022-02-18] MEDS ORDERED: HOLD METFORMIN - RECEIVED CONTRAST 20 ML VIAL IV SCH (20:30)
[2022-02-18] MEDS ORDERED: NS 100 ML (IVPB) BAG IV ONE (20:30)
--- NOTE | 2022-02-18 20:40 | Diagnostic Imaging Report ---
INDICATION: Abdominal pain, nausea, vomiting, diarrhea.. TECHNIQUE: Single view chest 8:32 PM. CORRELATION STUDY: None FINDINGS: The heart size, mediastinal configuration and pulmonary vascularity are within normal limits. No infiltrate. Perhaps minimal scarring or atelectasis right perihilar region and left lung base. IMPRESSION: 1. Negative for acute abnormality of the chest. Dictated by: Dictated on workstation # [id number]
--- NOTE | 2022-02-18 21:01 | Diagnostic Imaging Report ---
PROCEDURE: CT abdomen and pelvis with contrast. TECHNIQUE: Multiple contiguous axial images were obtained through the abdomen and pelvis after administration of intravenous contrast. Auto Exposure Controls were utilized during the CT exam to meet ALARA standards for radiation dose reduction. All CT scans use one or more of the following dose optimizing techniques: automated exposure control, MA and/or KvP adjustment based on patient size and exam type or iterative reconstruction. INDICATION: 81-year-old female, mid abdominal pain, diarrhea, nausea. CORRELATION STUDY: 05/19/2019. FINDINGS: LOWER THORAX: Minimal dependent atelectasis. Heart size is mildly enlarged with small pericardial effusion. Small hiatal hernia. LIVER: Unremarkable. GALLBLADDER: Gallbladder absent. There is mild prominence of the extrahepatic and central intrahepatic biliary tree likely post costectomy state. SPLEEN: Several calcified granulomas. PANCREAS: Atrophic, otherwise unremarkable. ADRENAL GLANDS: Unremarkable. KIDNEYS: Probable small cortical cyst, no obstruction. ABDOMINAL AORTA: Moderate aortoiliac wall calcification. GASTROINTESTINAL TRACT: Stomach relatively collapsed with resultant gastric wall thickening. There are a few fluid-filled loops of small bowel with some areas of small bowel wall thickening. Most pronounced in the pelvis. No transition or evidence for underlying obstruction. There is some fluid within the colon. Colonic diverticulosis without evidence for acute diverticulitis. The appendix is not localized. There is a small amount of pelvic fluid. URINARY BLADDER: Relatively decompressed. REPRODUCTIVE: Hysterectomy. OSSEOUS STRUCTURES: No acute abnormality. OTHER: None. IMPRESSION: 1. A few prominent fluid and gas-filled loops of small bowel with small bowel wall thickening. No transition or evidence for obstruction, could be reflective of nonspecific enteritis. There is presence of a small volume pelvic ascites which is considered abnormal given the patient's age. This does increase concern for potential underlying infectious or inflammatory process. Close clinical and potentially short-term follow-up imaging correlation, as clinically warranted. 2. Diverticulosis without evidence for acute diverticulitis. The appendix is not localized. 3. Cardiac enlargement. Small pericardial effusion. Dictated by: Dictated on workstation # [id number]
[2022-02-18] MEDS ORDERED: RX-HYOSCYAMINE 0.125 MG SL (LEVSIN) PPK#6 SL STA (21:28)
[2022-02-18] MEDS ORDERED: RX-ONDANSETRON 4 MG ODT (ZOFRAN) PPK #4 PO STA (21:28)
[2022-02-18] MEDS ORDERED: ONDA4TAB11 PO (21:33)
[2022-02-18] MEDS ORDERED: HYOS0.1283 SL (21:33)
[2022-02-18] MEDS ORDERED: L. A1CAP11 PO (21:33)
[2022-02-18 22:10] VITALS: BP 142/69
== END 2022-02-18 22:15 | disposition home or self-care (01) ==
LOC: EDUNIT# 19:19 → ER 19:19
DX: K52.9 Noninfective gastroenteritis and colitis, unspecified (principal); Z90.49 Acquired absence of other specified parts of digestive tract; Z90.710 Acquired absence of both cervix and uterus
CPT/HCPCS: 51701; 71045; 74177; 80053; 81000; 82150; 82550; 82553; 83690; 83735; 84484; 85007; 85610; 85730; 93005; 93041

== ENCOUNTER 2022-02-28 07:47 | Outpatient (CLI) | payer MEDICARE ==
[~2022-02-28] VITALS: Ht 162.6 cm; Wt 66.9 kg
[~2022-02-28 07:47] MED LIST changes: +HYOS0.1283 SL; +L. A1CAP11 PO; +ONDA4TAB11 PO
== END 2022-03-01 12:39 | disposition home or self-care (01) ==
LOC: PREOP 07:47
PROVIDERS: ATTEND Surgery
DX: Z01.818 Encounter for other preprocedural examination (principal)

== ENCOUNTER 2022-03-05 13:25 | Emergency (ER) | payer MEDICARE ==
[~2022-03-05] VITALS: Ht 162.5 cm; Wt 66.7 kg
[2022-03-05 13:45] LABS: BILIRUBIN,URINE NEGATIVE (NEGATIVE); CLARITY,URINE CLEAR; COLOR,URINE YELLOW; GLUCOSE, URINE (UA) NEGATIVE (NEGATIVE); KETONES,URINE NEGATIVE (NEGATIVE); LEUKOCYTE ESTERASE ,URINE 3+ (NEGATIVE); NITRITE,URINE NEGATIVE (NEGATIVE); PROTEIN,URINE TRACE (NEGATIVE)
--- NOTE | 2022-03-05 13:45 | ED GU-Female ---
General Stated Complaint: POSSIBLE UTI Source: patient Exam Limitations: no limitations History of Present Illness Date Seen by Provider: March 05, 2022 Time Seen by Provider: 13:44 Initial Comments To ER by private vehicle from home with reports of vaginal pain with urination since yesterday. No nausea no vomiting no flank pain no abdominal pain. She also has cloudy urine. She believes she has a urinary tract infection as she has the symptoms frequently when she has a UTI. Timing/Duration: constant Severity/Quality: moderate Location: vaginal Radiation: none Activities at Onset: none Prior Genitourinary Problems: none Associated Symptoms: dysuria Allergies and Home Medications Allergies Coded Allergies: No Known Allergies (Unverified Allergy, Unknown, 11/09/15) Patient Home Medication List Home Medication List Reviewed: Yes Metoprolol Succinate (Metoprolol Succinate) 50 Mg Tab.er.24h, 50 MG PO HS, (Reported) Entered as Reported by: BRENT MICHEL on 10/28/15 0751 Discontinued Medications Aspirin (Aspir 81) 81 Mg Tablet.dr, 81 MG PO MoWeFr, (Reported) Discontinued Reason: No Longer Taking Entered as Reported by: MAGDA KRUEGER on 01/01/19 1010 Cephalexin (Cephalexin) 500 Mg Capsule, 1 CAP PO TID Discontinued Reason: No Longer Taking Prescribed by: KIAN MUSTAFA on 01/12/19927 Hydrocodone Bit/Acetaminophen (Lortab 5 Mg Tablet) 1 Tab Tab, 1-2 TAB PO Q6H PRN for PAIN-MODERATE Discontinued Reason: No Longer Taking Prescribed by: KIAN MUSTAFA on 01/12/19927 Hyoscyamine Sulfate (Levsin-Sl) 0.125 Mg Tab.subl, 0.25 MG SL Q4H Discontinued Reason: No Longer Taking Prescribed by: ALEJANDRO DU on 02/18/222132 L. Acidophilus/Pectin, [place] (Acidophilus Capsule) 7.5 Mg (30 Million Cell)-100 Mg Capsule, 2 EACH PO QID Discontinued Reason: No Longer Taking Prescribed by: ALEJANDRO DU on 02/18/222132 Ondansetron (Ondansetron Odt) 4 Mg Tab.rapdis, 4 MG PO Q4H Discontinued Reason: No Longer Taking Prescribed by: ALEJANDRO DU on 02/18/222132 Review of Systems Review of Systems Constitutional: see HPI EENTM: see HPI Respiratory: no symptoms reported Cardiovascular: no symptoms reported Genitourinary: see HPI, dysuria Musculoskeletal: no symptoms reported Skin: no symptoms reported Psychiatric/Neurological: No Symptoms Reported Endocrine: No Symptoms Reported Past Bkwrcjh-Ghsdjx-Npmvrz Hx Immunizations Up To Date Tetanus Booster (TDap): Unknown PED Vaccines UTD: No Seasonal Allergies Seasonal Allergies: No Past Medical History Surgeries: Yes (R TKR;R FOOT BUNIONECTOMY;BILAT CATARACTS) Eye Surgery, Gallbladder, Hysterectomy, Orthopedic Respiratory: No Cardiac: Yes Hypertension Neurological: No 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 0.0oz. 70.854391mr; 24.00 BMI Method: General Appearance: WD/WN, no apparent distress Neck: non-tender, full range of motion Respiratory: no respiratory distress, no accessory muscle use Gastrointestinal: normal bowel sounds, non tender, soft Extremities: normal range of motion, non-tender Neurologic/Psychiatric: alert, normal mood/affect, oriented x 3 Skin: normal color, warm/dry Progress/Results/Core Measures Suspected Sepsis SIRS Temperature: Pulse: Respiratory Rate: Blood Pressure / Mean: Results/Orders Lab Results Laboratory Tests Test 03/05/22 13:40 Range/Units Urine Color YELLOW Urine Clarity CLEAR Urine pH 7.0 5-9 Urine Specific [place] 1.010 L 1.016-1.022 Urine Protein TRACE H NEGATIVE Urine Glucose (UA) NEGATIVE NEGATIVE Urine Ketones NEGATIVE NEGATIVE Urine Nitrite NEGATIVE NEGATIVE Urine Bilirubin NEGATIVE NEGATIVE Urine Urobilinogen 0.2 < = 1.0 MG/DL Urine Leukocyte Esterase 3+ H NEGATIVE Urine RBC (Auto) 2+ H NEGATIVE Urine RBC 5-10 H /HPF Urine WBC >100 H /HPF Urine Squamous Epithelial Cells 0-2 /HPF Urine Crystals NONE /LPF Urine Bacteria MODERATE H /HPF Urine Casts NONE /LPF Urine Mucus NEGATIVE /LPF Urine Culture Indicated YES My Orders Orders - CODIE JULIEN APRN Ua Culture If Indicated (03/05/22 13:32) Urine Culture (03/05/22 13:40) Vital Signs/I&O 03/05/22 13:36 Temp 36.4 Pulse 84 Resp 16 B/P (MAP) 191/90 (123) Pulse Ox 98 O2 Delivery Room Air Capillary Refill : Departure Impression Primary Impression: Urinary tract infection Disposition: HOME, SELF-CARE Condition: Stable Departure-Patient Inst. Decision time for Depature: 14:09 Referrals: CRISS LINDA MD (PCP/Family) Primary Care Physician Patient Instructions: Urinary Tract Infection, Adult (DC) Add. Discharge Instructions: . Antibiotic as directed starting tomorrow. Increase water intake. Return to ER for any worsening symptoms. Scripts Phenazopyridine HCl (Pyridium) 100 Mg Tablet 100 MG PO TID, #6 TAB Prov: CODIE JULIEN APRN 03/05/22 Cefuroxime Axetil (Cefuroxime) 500 Mg Tablet 500 MG PO BID, #10 TAB Prov: CODIE JULIEN APRN 03/05/22 CODIE JULIEN APRN March 05, 2022 13:45
[2022-03-05 13:51] LABS: BACTERIA,URINE MODERATE /HPF; SQUAMOUS EPITHELIAL CELL,UR 0-2 /HPF; WBC,URINE >100 /HPF
[2022-03-05] MEDS ORDERED: PHEN-639 PO (14:10)
[2022-03-05] MEDS ORDERED: CEFU500T63 PO (14:10)
[2022-03-05] MEDS ORDERED: CEFDINIR 300 MG (OMNICEF) CAP PO ONE (14:15)
[2022-03-05] MEDS ORDERED: PHENAZOPYRIDINE 100 MG (PYRIDIUM) TABLET PO ONE (14:15)
[2022-03-05 14:19] VITALS: BP 176/93
== END 2022-03-05 14:18 | disposition home or self-care (01) ==
LOC: EDUNIT# 13:25 → ER 13:27
DX: N39.0 Urinary tract infection, site not specified (principal)
CPT/HCPCS: 81000; 87077; 87088; 87186; 99283

== ENCOUNTER 2022-03-08 08:10 | Day surgery (SDC) | payer MEDICARE ==
[~2022-03-08] VITALS: Ht 162.6 cm; Wt 66.7 kg
[~2022-03-08 08:10] MED LIST changes: +CEFU500T63 PO; +PHEN-639 PO
[2022-03-08] MEDS ORDERED: LACTATED RINGERS 1,000 ML IV STA (08:16)
[2022-03-08 08:34] VITALS: BP 186/94
--- NOTE | 2022-03-08 08:37 | Progress Note-Pre Operative ---
Pre-Operative Progress Note H&P Reviewed The H&P was reviewed, patient examined and no changes noted. Time Seen by Provider: 08:36 Date H&P Reviewed: Mar 08, 2022 Time H&P Reviewed: 08:36 Pre-Operative Diagnosis: Blood in stool, Anemia RICHARD MANSFIELD DO Mar 08, 2022 08:37
[2022-03-08] MEDS ORDERED: PROPOFOL INJECTION 50 ML IV ONE (09:04)
[2022-03-08 09:55] VITALS: BP 75/37
[2022-03-08 10:00] VITALS: BP 82/39
--- NOTE | 2022-03-08 10:00 | Endoscopy Discharge Instruct ---
Endo Procedure/Findings Findings 1.: Gastritis 2.: Hiatal Hernia 3.: Diverticulosis 4.: Internal Hemorrhoids Discharge Instructions - Activity: You might feel a little sleepy until tomorrow. This is due to the medicine you received to relax you. Until tomorrow, you should: NOT drive a car, operate machinery or power tools. NOT drink any alcoholic beverages. NOT make any important decisions or sign importortant papers. Do not return to work until tomorrow, unless otherwise instructed. Resume previous activities tomorrow. Diet: Start by taking liquids. If you tolerate liquids, advance to solid food. 1.: EGD in 3 years 2.: Colonscopy in 10 years Notify Physician - If you experience excessive bleeding, unusual abdominal pain, fever, or chest pain, contact your doctor immediately. RICHARD MANSFIELD DO Mar 08, 2022 10:00
--- NOTE | 2022-03-08 10:00 | Progress Note-Post Operative ---
Post-Operative Progess Note Surgeon (s)/General Warehouse Associate (s) Surgeon RICHARD MANSFIELD DO General Warehouse Associate: none Pre-Operative Diagnosis Blood in stool, Anemia Post-Operative Diagnosis Gastritis Gastric Polyp Hiatal hernia diverticulosis int hemorrhoids Procedure & Operative Findings Date of Procedure 03/08/22 Procedure Performed/Findings EGD with biopsy Colonoscopy PROCEDURE NOTE: After informed consent was obtained, the patient was brought to the endoscopy suite, placed in bed in left lateral decubitus position. She was administered IV sedation by the APPLICATION ENGINEER who then monitored vitals the entire time, heart rate, blood pressure and pulse ox and the scope was inserted down the mouth through the esophagus into the stomach. On the way down, noted some mild esophagitis, took a picture, pushed into the stomach, pushed past the antrum into the duodenum. Duodenum looked good. Pulled back and did a biopsy of antrum (noted mild gastritis), then retroflexed the scope and saw a small hiatal hernia. I also saw a small gastric polyp, took a picture of this and the hiatal hernia. Removed the polyp and then pulled the scope into the GE junction, took another picture of the hiatal hernia and then did a biopsy of the GE junction. Pushed the scope back into the stomach, suctioned all the air out of the stomach. At this point pulled the scope up the esophagus (took a picture of what looked like a solitary Varice) and out the mouth. Switched camera, switched gloves, went down below, started the colonoscopy. Pushed all the way into about 140 cm to get all the way to cecum, took a picture of the appendiceal orifice and noted the ileocecal valve. On the way in noted multiple large diverticula, mostly on the left side but a scattered few throughout colon. Then slowly withdrew the scope, insufflating to look circumferentially at the haney starting in the cecum, up the ascending colon to the hepatic flexure, then down the transverse colon, splenic flexure, into the descending colon, down into the sigmoid and finally into the rectum, retroflexed in the rectal vault, saw some minimal internal hemorrhoids and took a picture of this. The patient tolerated the procedure and she recovered in the endoscopy suite. Recommended for repeat colonoscopy in 10 years Anesthesia Type IV sedation by APPLICATION ENGINEER Estimated Blood Loss Estimated blood loss (mL): scant Specimens/Packing Specimens Removed antral bx gastric polyp GE jxn bx RICHARD MANSFIELD DO Mar 08, 2022 10:00
--- NOTE | 2022-03-08 10:02 | Anesthesia-General Post-Op ---
MAC Patient Condition Mental Status/LOC: Same as Preop Cardiovascular: Satisfactory Nausea/Vomiting: Absent Respiratory: Satisfactory Pain: Controlled Complications: Absent Post Op Complications Complications None Follow Up Care/Instructions Patient Instructions None needed. Anesthesiology Discharge Order Discharge Order Patient is doing well, no complaints, stable vital signs, no apparent adverse anesthesia problems. No complications reported per nursing. HANK ODONNELL CRNA Mar 08, 2022 10:02
[2022-03-08 10:03] VITALS: BP 112/52
[2022-03-08 10:05] VITALS: BP 123/59
[2022-03-08 10:55] VITALS: BP 120/75
== END 2022-03-08 11:00 | disposition home or self-care (01) ==
LOC: ENDO 08:10
PROVIDERS: ATTEND Surgery
DX: K29.50 Unspecified chronic gastritis without bleeding (principal); K31.7 Polyp of stomach and duodenum; K20.90 Esophagitis, unspecified without bleeding; K92.1 Melena; D64.9 Anemia, unspecified; K31.89 Other diseases of stomach and duodenum; K44.9 Diaphragmatic hernia without obstruction or gangrene; K57.30 Diverticulosis of large intestine without perforation or abscess without bleeding; K64.8 Other hemorrhoids; D50.9 Iron deficiency anemia, unspecified; Z80.0 Family history of malignant neoplasm of digestive organs

== ENCOUNTER → 2022-06-19 | Outpatient (CLI) | payer MEDICARE ==
--- NOTE | 2022-06-19 14:22 | Diagnostic Imaging Report ---
Indication: Right axillary swelling. Sonographic interrogation of the area of swelling right axilla was performed. There is a fatty lymph node in the right axilla measuring 1.2 x 0.7 x 1.5 cm. This has a thin cortex. No other masses are seen. No fluid collections are identified. IMPRESSION: BI-RADS Category 1 Normal appearing right axillary ultrasound. No suspicious sonographic abnormality is detected. ACR BI-RADS Category 1: Negative. Dictated by: Dictated on workstation # [id number]
== END ==
LOC: RAD 12:10
PROVIDERS: ATTEND Physician Assistant
DX: R22.31 Localized swelling, mass and lump, right upper limb (principal)